=== PATIENT | female | born 1970 | race Caucasian/White ===

== ENCOUNTER → 2016-08-29 | Outpatient (CLI) | payer BC ==
[~2016-08-29] MED LIST: ALAVERT10 M1 PO; ALEVE220 MG PO; ATIVAN1 MG PO; AUGMENTIN 875875 MG PO; DAYPRO600 M1 PO; MOTRIN800 MG PO; NORCO 325 MG-51 TAB PO; PERCOCET 325 MG1 TA5 PO; ZYRTEC10 MG PO
== END | disposition home or self-care (01) ==
LOC: LAB 12:40
PROVIDERS: Specialist
DX: J01.41 Acute recurrent pansinusitis (principal)